=== PATIENT | male | born 1955 | race Caucasian/White ===

== ENCOUNTER 2021-12-13 09:00 | Outpatient (RCR) | payer OTHER, SELFPAY | END 2022-02-11 15:00 | disposition home or self-care (01) | LOC: HO.WCC 09:00 | PROVIDERS: PCP Family Medicine; Visit Provider Surgery | DX: I70.245 Atherosclerosis of native arteries of left leg with ulceration of other part of foot (principal); L97.522 Non-pressure chronic ulcer of other part of left foot with fat layer exposed; I70.248 Atherosclerosis of native arteries of left leg with ulceration of other part of lower leg; L97.822 Non-pressure chronic ulcer of other part of left lower leg with fat layer exposed; M86.072 Acute hematogenous osteomyelitis, left ankle and foot; T81.31XA Disruption of external operation (surgical) wound, not elsewhere classified, initial encounter | CPT/HCPCS: 11042; 11043; 97602; 99213 ==